=== PATIENT | female | born 1970 | race Two or more races ===

== ENCOUNTER 2020-07-22 10:44 | Inpatient (IN) | payer MEDICAID ==
[~2020-07-22] VITALS: Ht 160 cm; Wt 74.1 kg
[2020-07-22 12:02] LABS: BASOPHILS # (AUTO) 0.1 X10'3 (0-0.2); BASOPHILS % (AUTO) 0.5 % (0-1); EOSINOPHILS % (AUTO) 0.1 % (0-6); HEMATOCRIT 28.6 % (35.0-45.0); HEMOGLOBIN 9.2 g/dl (12.0-16.0); LYMPHOCYTES % (AUTO) 7.9 % (21-51); MEAN CORPUSCULAR HEMOGLOBIN 25.4 PG (27.0-31.0); MEAN CORPUSCULAR HGB CONC 32.3 g/dL (33.0-36.5); MEAN CORPUSCULAR VOLUME 78.6 FL (78-98); MEAN PLATELET VOLUME 8.5 FL (7.4-10.4); MONOCYTES % (AUTO) 8.4 % (2-12); NEUTROPHILS # (AUTO) 10.3 X10'3 (1.8-7.7); NEUTROPHILS % (AUTO) 83.1 % (42-75); PLATELET COUNT 280 X10'3 (140-440); RED BLOOD COUNT 3.63 X10'6 (4.20-5.60); RED CELL DISTRIBUTION WIDTH 15.4 % (11.5-14.5); WHITE BLOOD COUNT 12.4 X10'3 (4.5-11.0)
[2020-07-22] MEDS ORDERED: normal saline 1000ML IV soln IVB ONE (12:20)
[2020-07-22] MEDS ORDERED: ketorolac tromethamine 15mg/ml inj. IM ONE (12:20)
[2020-07-22 12:22] LABS: ALANINE AMINOTRANSFERASE 61 U/L (12-78); ALBUMIN 3.4 G/DL (3.4-5.0); ALBUMIN/GLOBULIN RATIO 0.8 (1.1-1.5); ALKALINE PHOSPHATASE 98 IU/L (46-116); ANION GAP 10 (8-16); ASPARTATE AMINO TRANSFERASE 37 U/L (10-37); BILIRUBIN,TOTAL 1.3 MG/DL (0.1-1.0); BLOOD UREA NITROGEN 15 MG/DL (7-18); CALCIUM 8.6 MG/DL (8.5-10.1); CHLORIDE 101 MMOL/L (99-107); CREATININE 0.79 MG/DL (0.40-0.90); GLUCOSE 103 MG/DL (70-104); LIPASE 75 U/L (73-393); POTASSIUM 3.7 MMOL/L (3.5-5.1); SODIUM 137 MMOL/L (135-145); TOTAL CARBON DIOXIDE 25.7 MMOL/L (24-32); TOTAL PROTEIN 7.8 G/DL (6.4-8.2); eGFR 77 ML/MIN
[2020-07-22] MEDS ORDERED: mag hydrox/Alum hydrox/simeth 30ml oral suspension PO ONE (13:25)
[2020-07-22] MEDS ORDERED: famotidine 20mg tablet PO ONE (13:25)
[2020-07-22 14:31] LABS: CLARITY,URINE SLIGHTLY CLOUDY (Clear); COLOR,URINE YELLOW (Yellow); GLUCOSE, URINE NEGATIVE (Neg); KETONES,URINE TRACE mg/dl (Neg); LEUKOCYTE ESTERASE ,URINE NEGATIVE (Neg); NITRITES, URINE NEGATIVE (Neg); OCCULT BLOOD,URINE MODERATE (Neg); PROTEIN,URINE NEGATIVE (Neg); UROBILINOGEN,URINE 0.2 E.U/dL (0.2-1.0)
[2020-07-22 14:32] LABS: UA COLLECTION TYPE CLN CATCH MIDSTREAM
[2020-07-22 14:33] LABS: URINE HCG NEGATIVE (NEG)
[2020-07-22 14:48] LABS: SQUAMOUS EPITHELIAL CELL,UR MODERATE /LPF (FEW)
[2020-07-22 14:50] LABS: BACTERIA,URINE 4+ /HPF (Neg); COARSE GRANULAR CAST 0-3 /LPF (NEGATIVE); RBC,URINE 0-2 /HPF (0-2)
[2020-07-22] MEDS ORDERED: iohexol 300mg/ml 100ml inj. ONE (15:08)
[2020-07-22] MEDS ORDERED: CefTRIAXone/D5W-Rocephin 1gm 50 ML IV ONE (16:05)
[2020-07-22 16:20] LABS: GASTRIC OCCULT BLOOD POSITIVE (Neg)
[2020-07-22] MEDS ORDERED: OMEP-50 PO (17:14)
[2020-07-22] MEDS ORDERED: ONDA8TAB65 PO (17:14)
[2020-07-22] MEDS ORDERED: FLUO100P17 PO (17:14)
[2020-07-22] MEDS ORDERED: VITA1TAB20 PO (17:15)
[2020-07-22] MEDS ORDERED: ASCO-10 PO (17:15)
[2020-07-22] MEDS ORDERED: magnesium 4gm in 100ml NS 100 ML IV PRN (18:10)
[2020-07-22] MEDS ORDERED: acetaminophen 325mg tablet PO PRN (18:10)
[2020-07-22] MEDS ORDERED: morphine 2 MG/ML inj. syringe IV PRN ×2 (18:10)
[2020-07-22] MEDS ORDERED: magnesium 2GM in 50ml NS 50 ML IV PRN (18:10)
[2020-07-22] MEDS ORDERED: potassium Cl 20 mEq SR tablet PO PRN ×2 (18:10)
[2020-07-22] MEDS ORDERED: magnesium hydroxide 30ml (MOM) UD suspension PO PRN (18:10)
[2020-07-22] MEDS ORDERED: potassium Cl 40MEQ/1/2NS 520ml 520 ML IV PRN ×2 (18:10)
[2020-07-22] MEDS ORDERED: ondansetron/PF 4mg/2ml inj IV PRN (18:10)
[2020-07-22] MEDS: normal saline 1000ml 1,000 ML IV SCH (18:46)
[2020-07-22 19:05] LABS: HEMATOCRIT 24.8 % (35.0-45.0); HEMOGLOBIN 7.9 g/dl (12.0-16.0); MEAN CORPUSCULAR HEMOGLOBIN 25.3 PG (27.0-31.0); MEAN CORPUSCULAR VOLUME 78.9 FL (78-98); MEAN PLATELET VOLUME 8.8 FL (7.4-10.4); PLATELET COUNT 217 X10'3 (140-440); RED BLOOD COUNT 3.14 X10'6 (4.20-5.60); RED CELL DISTRIBUTION WIDTH 15.4 % (11.5-14.5); WHITE BLOOD COUNT 11.8 X10'3 (4.5-11.0)
[2020-07-22] MEDS: pantoprazole 40MG/NS 100ML BAG 100 ML IV SCH ×3 (19:13→22:58)
[2020-07-22] MEDS: K and/or MAG REPLACEMENT MC SCH (19:14)
--- NOTE | 2020-07-22 19:21 | NUR ---
Patient in room ED 16. I have received report from THERESE CARLSON and had the opportunity to ask questions and will assume patient care.
[2020-07-22 19:42] VITALS: BP 118/68
[2020-07-22] MEDS: mag hydrox/Alum hydrox/simeth 30ml oral suspension PO PRN (20:50)
[2020-07-22] MEDS ORDERED: pantoprazole 40MG/NS 100ML BAG 100 ML IV SCH (21:00)
--- NOTE | 2020-07-22 22:33 | NUR ---
PATIENT RUNNING A LOW GRADE FEVER OF 100.3 AND COOLING MEASURES PROVIDED.
[2020-07-22 23:52] VITALS: BP 108/53
[2020-07-23] VITALS (8 sets, daily range): BP systolic 89–132; BP diastolic 44–69
[2020-07-23] MEDS: normal saline 1000ml 1,000 ML IV SCH ×2 (02:30→12:17)
[2020-07-23 02:32] LABS: HEMATOCRIT 25.5 % (35.0-45.0); HEMOGLOBIN 8.1 g/dl (12.0-16.0); MEAN CORPUSCULAR HEMOGLOBIN 25.2 PG (27.0-31.0); MEAN CORPUSCULAR HGB CONC 31.7 g/dL (33.0-36.5); MEAN CORPUSCULAR VOLUME 79.4 FL (78-98); PLATELET COUNT 229 X10'3 (140-440); RED BLOOD COUNT 3.21 X10'6 (4.20-5.60); RED CELL DISTRIBUTION WIDTH 15.4 % (11.5-14.5); WHITE BLOOD COUNT 14.1 X10'3 (4.5-11.0)
--- NOTE | 2020-07-23 02:46 | NUR ---
Patient running a fever with temperature 103.0 orally and Tylenol administered.
[2020-07-23 02:51] LABS: ALANINE AMINOTRANSFERASE 45 U/L (12-78); ALBUMIN 2.7 G/DL (3.4-5.0); ALBUMIN/GLOBULIN RATIO 0.7 (1.1-1.5); ALKALINE PHOSPHATASE 74 IU/L (46-116); ANION GAP 9 (8-16); ASPARTATE AMINO TRANSFERASE 22 U/L (10-37); BLOOD UREA NITROGEN 11 MG/DL (7-18); BUN/CREATININE RATIO 10.8 (6.6-38.0); CALCIUM 7.6 MG/DL (8.5-10.1); CHLORIDE 103 MMOL/L (99-107); CREATININE 1.02 MG/DL (0.40-0.90); GLUCOSE 116 MG/DL (70-104); MAGNESIUM 1.9 MG/DL (1.5-2.4); POTASSIUM 3.8 MMOL/L (3.5-5.1); SODIUM 134 MMOL/L (135-145); TOTAL CARBON DIOXIDE 21.9 MMOL/L (24-32); TOTAL PROTEIN 6.4 G/DL (6.4-8.2); eGFR 58 ML/MIN
--- NOTE | 2020-07-23 04:02 | NUR ---
RECHECKED TEMP 100.0
[2020-07-23] MEDS: pantoprazole 40MG/NS 100ML BAG 100 ML IV SCH ×3 (04:18→16:00)
--- NOTE | 2020-07-23 06:20 | NUR ---
Problems reprioritized. Patient report given, questions answered & plan of care reviewed with AME CARLSON.
[2020-07-23] MEDS: K and/or MAG REPLACEMENT MC SCH ×2 (08:00→19:30)
[2020-07-23 10:27] LABS: HEMATOCRIT 26.4 % (35.0-45.0); HEMOGLOBIN 8.5 g/dl (12.0-16.0); MEAN CORPUSCULAR HEMOGLOBIN 25.5 PG (27.0-31.0); MEAN CORPUSCULAR HGB CONC 32.2 g/dL (33.0-36.5); MEAN PLATELET VOLUME 8.4 FL (7.4-10.4); PLATELET COUNT 236 X10'3 (140-440); RED BLOOD COUNT 3.34 X10'6 (4.20-5.60); RED CELL DISTRIBUTION WIDTH 15.5 % (11.5-14.5)
[2020-07-23] MEDS ORDERED: MIDAZolam 5mg/5ml vial ONE (13:20)
[2020-07-23] MEDS ORDERED: fentaNYL/PF 50MCG/1 ML 2ML syringe ONE (13:20)
[2020-07-23] MEDS ORDERED: LIDOcaine Viscous 15ml cup ONE (13:20)
[2020-07-23] MEDS: CefTRIAXone/D5W-Rocephin 1gm 50 ML IV SCH (16:23)
--- NOTE | 2020-07-23 18:08 | NUR ---
Problems reprioritized. Patient report given, questions answered & plan of care reviewed with ALDO Jim.
--- NOTE | 2020-07-23 19:26 | NUR ---
Patient in room [facility]. I have received report from AME CARLSON and had the opportunity to ask questions and assume patient care.
[2020-07-23] MEDS: lactobacillus rhamnosus 10,000 MMU CELLS/CAPSULE PO SCH (19:37)
[2020-07-23] MEDS: pantoprazole 40mg Tablet.DR PO SCH (19:38)
[2020-07-23] MEDS: mag hydrox/Alum hydrox/simeth 30ml oral suspension PO PRN (19:40)
[2020-07-24] VITALS: BP 126/61
[2020-07-24] MEDS: normal saline 1000ml 1,000 ML IV SCH ×2 (00:51→10:47)
--- NOTE | 2020-07-24 06:36 | NUR ---
Problems reprioritized. Patient report given, questions answered & plan of care reviewed with BREANA CARLSON/NEIL CARLSON.
--- NOTE | 2020-07-24 06:41 | NUR ---
Patient in room [facility]. I have received report from Diandra CARLSON and had the opportunity to ask questions and assume patient care.
[2020-07-24 07:00] VITALS: BP 117/47
[2020-07-24 07:07] LABS: BASOPHILS # (AUTO) 0.1 X10'3 (0-0.2); BASOPHILS % (AUTO) 0.4 % (0-1); EOSINOPHILS % (AUTO) 0.2 % (0-6); HEMATOCRIT 22.9 % (35.0-45.0); HEMOGLOBIN 7.4 g/dl (12.0-16.0); LYMPHOCYTES # (AUTO) 1.8 X10'3 (1.1-4.8); LYMPHOCYTES % (AUTO) 14.5 % (21-51); MEAN CORPUSCULAR HEMOGLOBIN 25.7 PG (27.0-31.0); MEAN CORPUSCULAR HGB CONC 32.5 g/dL (33.0-36.5); MEAN CORPUSCULAR VOLUME 78.8 FL (78-98); MEAN PLATELET VOLUME 9.1 FL (7.4-10.4); MONOCYTES # (AUTO) 1.5 X10'3 (0-0.9); MONOCYTES % (AUTO) 11.9 % (2-12); NEUTROPHILS # (AUTO) 9.3 X10'3 (1.8-7.7); PLATELET COUNT 200 X10'3 (140-440); RED CELL DISTRIBUTION WIDTH 15.8 % (11.5-14.5); WHITE BLOOD COUNT 12.8 X10'3 (4.5-11.0)
[2020-07-24 07:39] LABS: ALANINE AMINOTRANSFERASE 36 U/L (12-78); ALBUMIN 2.4 G/DL (3.4-5.0); ALBUMIN/GLOBULIN RATIO 0.7 (1.1-1.5); ALKALINE PHOSPHATASE 62 IU/L (46-116); ANION GAP 12 (8-16); ASPARTATE AMINO TRANSFERASE 24 U/L (10-37); BILIRUBIN,TOTAL 0.8 MG/DL (0.1-1.0); BLOOD UREA NITROGEN 7 MG/DL (7-18); BUN/CREATININE RATIO 9.7 (6.6-38.0); CALCIUM 7.3 MG/DL (8.5-10.1); CHLORIDE 107 MMOL/L (99-107); CREATININE 0.72 MG/DL (0.40-0.90); GLUCOSE 98 MG/DL (70-104); MAGNESIUM 2.1 MG/DL (1.5-2.4); POTASSIUM 3.6 MMOL/L (3.5-5.1); SODIUM 141 MMOL/L (135-145); TOTAL CARBON DIOXIDE 22.2 MMOL/L (24-32); eGFR 86 ML/MIN
[2020-07-24] MEDS: K and/or MAG REPLACEMENT MC SCH ×2 (08:00→20:00)
[2020-07-24] MEDS: lactobacillus rhamnosus 10,000 MMU CELLS/CAPSULE PO SCH ×2 (08:51→21:07)
[2020-07-24] MEDS: pantoprazole 40mg Tablet.DR PO SCH ×2 (08:51→21:07)
[2020-07-24 11:07] VITALS: BP 109/60
[2020-07-24] MEDS: CefTRIAXone/D5W-Rocephin 1gm 50 ML IV SCH (16:49)
[2020-07-24] MEDS ORDERED: acetaminophen 325mg tablet PO PRN (17:10)
[2020-07-24 18:00] VITALS: BP 111/49
--- NOTE | 2020-07-24 18:41 | NUR ---
Problems reprioritized. Patient report given, questions answered & plan of care reviewed with Prudence RN.
[2020-07-24] MEDS ORDERED: Melatonin 3mg tablet PO SCH (21:00)
[2020-07-24 23:55] VITALS: BP 130/63
[2020-07-25] MEDS: normal saline 1000ml 1,000 ML IV SCH (05:20)
[2020-07-25 06:07] LABS: BASOPHILS # (AUTO) 0.1 X10'3 (0-0.2); BASOPHILS % (AUTO) 0.7 % (0-1); EOSINOPHILS # (AUTO) 0.2 X10'3 (0-0.9); HEMATOCRIT 23.6 % (35.0-45.0); HEMOGLOBIN 7.7 g/dl (12.0-16.0); LYMPHOCYTES # (AUTO) 1.4 X10'3 (1.1-4.8); MEAN CORPUSCULAR HEMOGLOBIN 25.7 PG (27.0-31.0); MEAN CORPUSCULAR HGB CONC 32.6 g/dL (33.0-36.5); MEAN CORPUSCULAR VOLUME 78.9 FL (78-98); MONOCYTES # (AUTO) 0.8 X10'3 (0-0.9); MONOCYTES % (AUTO) 9.5 % (2-12); NEUTROPHILS # (AUTO) 6.1 X10'3 (1.8-7.7); NEUTROPHILS % (AUTO) 71.8 % (42-75); PLATELET COUNT 204 X10'3 (140-440); RED BLOOD COUNT 2.99 X10'6 (4.20-5.60); RED CELL DISTRIBUTION WIDTH 15.9 % (11.5-14.5); WHITE BLOOD COUNT 8.5 X10'3 (4.5-11.0)
--- NOTE | 2020-07-25 06:16 | NUR ---
Problems reprioritized. Patient report given, questions answered & plan of care reviewed with BREANA CARLSON/NEIL CARLSON.
--- NOTE | 2020-07-25 06:21 | NUR ---
Patient in room [facility]. I have received report from Diandra CARLSON and had the opportunity to ask questions and assume patient care.
[2020-07-25 06:32] LABS: ALANINE AMINOTRANSFERASE 49 U/L (12-78); ALBUMIN 2.4 G/DL (3.4-5.0); ALBUMIN/GLOBULIN RATIO 0.6 (1.1-1.5); ALKALINE PHOSPHATASE 66 IU/L (46-116); ANION GAP 9 (8-16); ASPARTATE AMINO TRANSFERASE 38 U/L (10-37); BILIRUBIN,TOTAL 0.6 MG/DL (0.1-1.0); BLOOD UREA NITROGEN 7 MG/DL (7-18); CALCIUM 7.8 MG/DL (8.5-10.1); CHLORIDE 108 MMOL/L (99-107); GLUCOSE 97 MG/DL (70-104); MAGNESIUM 2.1 MG/DL (1.5-2.4); SODIUM 141 MMOL/L (135-145); TOTAL CARBON DIOXIDE 24.5 MMOL/L (24-32); TOTAL PROTEIN 6.1 G/DL (6.4-8.2); eGFR 89 ML/MIN
[2020-07-25 07:49] VITALS: BP 112/59
[2020-07-25] MEDS: pantoprazole 40mg Tablet.DR PO SCH (08:27)
[2020-07-25] MEDS: lactobacillus rhamnosus 10,000 MMU CELLS/CAPSULE PO SCH (08:28)
[2020-07-25] MEDS: K and/or MAG REPLACEMENT MC SCH (08:30)
[2020-07-25 11:00] VITALS: BP 108/46
[2020-07-25] MEDS ORDERED: PANT40TA54 PO (14:38)
--- NOTE | 2020-07-26 16:06 | NUR ---
CASE MANAGEMENT DISCHARGE FOLLOW UP: Spoke with pt via telephone. Reports that she is feeling much better, a little tired; denies pain, gas. Verbalizes understanding of s/sx requiring further evaluation/emergent assistance. Verbalizes understanding of new and current medications. Verbalizes compliance with MD discharge instructions. Verbalizes understanding of the importance in making/keeping follow-up appointments, sees PCP next week. Wants to know about GI results, provided with Dr Sharma's phone number, she will call for follow up. States no further questions/concerns at this time.
== END 2020-07-25 16:05 | disposition home or self-care (01) | DRG 720 ==
LOC: ER 10:45 → ED HOLD 18:10 → SUR 3N 19:29
PROVIDERS: ADMIT Family Medicine; ATTEND Family Medicine
PROC: BW211ZZ Computerized Tomography (CT Scan) of Abdomen and Pelvis using Low Osmolar Contrast (ICD-10-PCS; 2020-07-22)
PROC: 0DB68ZX Excision of Stomach, Via Natural or Artificial Opening Endoscopic, Diagnostic (ICD-10-PCS; principal; 2020-07-23)
DX: A41.9 Sepsis, unspecified organism (principal); N10 Acute pyelonephritis; D50.0 Iron deficiency anemia secondary to blood loss (chronic); K76.0 Fatty (change of) liver, not elsewhere classified; K21.9 Gastro-esophageal reflux disease without esophagitis; N93.9 Abnormal uterine and vaginal bleeding, unspecified; B96.20 Unspecified Escherichia coli [E. coli] as the cause of diseases classified elsewhere; K29.51 Unspecified chronic gastritis with bleeding; Z82.49 Family history of ischemic heart disease and other diseases of the circulatory system; Z83.3 Family history of diabetes mellitus; Z98.891 History of uterine scar from previous surgery; Z79.899 Other long term (current) drug therapy
CPT/HCPCS: 36415; 43239; 74177; 76700; 76856; 80053; 81001; 81025; 82271; 83605; 83690; 83735; 84145; 85025; 85027; 87040; 87077; 87081; 87088; 87186; 87210; 96372; 99152; 99153; 99285; A4620; C9113; G0378; J0696; J1885; J2250; J2270; J3010; J7030; J7040; Q9967

== ENCOUNTER 2020-07-31 12:06 | Emergency (ER) | payer MEDICAID ==
[~2020-07-31] VITALS: Ht 157.5 cm; Wt 72.5 kg
[~2020-07-31 12:06] MED LIST: ASCO-10 PO; FLUO100P17 PO; ONDA8TAB65 PO; PANT40TA54 PO; VITA1TAB20 PO
[2020-07-31] MEDS ORDERED: normal saline 1000ML IV soln IVB ONE (12:50)
[2020-07-31] MEDS ORDERED: ferrous sulfate 325mg tablet PO STA (12:55)
[2020-07-31] MEDS ORDERED: medroxyprogesterone acet. 2.5mg tablet PO STA (12:55)
[2020-07-31 13:01] LABS: URINE HCG NEGATIVE (NEG)
[2020-07-31 13:01] LABS: BASOPHILS # (AUTO) 0.1 X10'3 (0-0.2); BASOPHILS % (AUTO) 0.8 % (0-1); EOSINOPHILS # (AUTO) 0.1 X10'3 (0-0.9); EOSINOPHILS % (AUTO) 1.3 % (0-6); HEMATOCRIT 26.8 % (35.0-45.0); HEMOGLOBIN 8.6 g/dl (12.0-16.0); LYMPHOCYTES # (AUTO) 1.4 X10'3 (1.1-4.8); LYMPHOCYTES % (AUTO) 18.9 % (21-51); MEAN CORPUSCULAR HGB CONC 32.3 g/dL (33.0-36.5); MEAN CORPUSCULAR VOLUME 77.3 FL (78-98); MEAN PLATELET VOLUME 8.6 FL (7.4-10.4); MONOCYTES # (AUTO) 0.4 X10'3 (0-0.9); MONOCYTES % (AUTO) 6.1 % (2-12); NEUTROPHILS # (AUTO) 5.3 X10'3 (1.8-7.7); NEUTROPHILS % (AUTO) 72.9 % (42-75); PLATELET COUNT 459 X10'3 (140-440); RED BLOOD COUNT 3.46 X10'6 (4.20-5.60); RED CELL DISTRIBUTION WIDTH 15.8 % (11.5-14.5); WHITE BLOOD COUNT 7.3 X10'3 (4.5-11.0)
[2020-07-31 13:18] LABS: ALANINE AMINOTRANSFERASE 53 U/L (12-78); ALBUMIN 3.1 G/DL (3.4-5.0); ALBUMIN/GLOBULIN RATIO 0.7 (1.1-1.5); ALKALINE PHOSPHATASE 75 IU/L (46-116); ANION GAP 8 (8-16); ASPARTATE AMINO TRANSFERASE 34 U/L (10-37); BILIRUBIN,TOTAL 0.4 MG/DL (0.1-1.0); BLOOD UREA NITROGEN 15 MG/DL (7-18); BUN/CREATININE RATIO 19.5 (6.6-38.0); CALCIUM 8.7 MG/DL (8.5-10.1); CHLORIDE 103 MMOL/L (99-107); CREATININE 0.77 MG/DL (0.40-0.90); GLUCOSE 115 MG/DL (70-104); POTASSIUM 4.1 MMOL/L (3.5-5.1); SODIUM 137 MMOL/L (135-145); TOTAL CARBON DIOXIDE 25.6 MMOL/L (24-32); TOTAL PROTEIN 7.3 G/DL (6.4-8.2); eGFR 80 ML/MIN
[2020-07-31] MEDS ORDERED: FERR325T28 PO (13:46)
[2020-07-31] MEDS ORDERED: MEDR10TA PO (13:46)
[2020-07-31 13:49] VITALS: BP 130/82
== END 2020-07-31 14:33 | disposition home or self-care (01) ==
LOC: ER 12:07
DX: N93.9 Abnormal uterine and vaginal bleeding, unspecified (principal); R11.2 Nausea with vomiting, unspecified; K21.9 Gastro-esophageal reflux disease without esophagitis; Z98.890 Other specified postprocedural states; Z79.899 Other long term (current) drug therapy
CPT/HCPCS: 36415; 80053; 81025; 85025; 93005; 96360; 99284; J7030

== ENCOUNTER 2020-10-11 05:32 | Day surgery (SDC) | payer MEDICAID ==
[2020-10-05 10:14] LABS: BASOPHILS # (AUTO) 0.1 X10'3 (0-0.2); BASOPHILS % (AUTO) 0.9 % (0-1); EOSINOPHILS # (AUTO) 0.1 X10'3 (0-0.9); EOSINOPHILS % (AUTO) 1.7 % (0-6); LYMPHOCYTES # (AUTO) 1.4 X10'3 (1.1-4.8); LYMPHOCYTES % (AUTO) 24.6 % (21-51); MEAN CORPUSCULAR HGB CONC 33.2 g/dL (33.0-36.5); MEAN CORPUSCULAR VOLUME 81.4 FL (78-98); MEAN PLATELET VOLUME 9.4 FL (7.4-10.4); MONOCYTES # (AUTO) 0.5 X10'3 (0-0.9); MONOCYTES % (AUTO) 8.5 % (2-12); NEUTROPHILS # (AUTO) 3.5 X10'3 (1.8-7.7); NEUTROPHILS % (AUTO) 64.3 % (42-75); PRE OP HEMATOCRIT 42.6 % (35.0-45.0); PRE OP HEMOGLOBIN 14.2 g/dL (12.0-16.0); PRE OP PLATELET COUNT 353 X10'3 (140-440); RED BLOOD COUNT 5.24 X10'6 (4.20-5.60); RED CELL DISTRIBUTION WIDTH 15.4 % (11.5-14.5)
[2020-10-05 10:15] LABS: CLARITY,URINE CLOUDY (Clear); COLOR,URINE YELLOW (Yellow); GLUCOSE, URINE NEGATIVE (Neg); KETONES,URINE NEGATIVE (Neg); LEUKOCYTE ESTERASE ,URINE NEGATIVE (Neg); NITRITES, URINE NEGATIVE (Neg); OCCULT BLOOD,URINE NEGATIVE (Neg); PH,URINE 5.5 (4.8-8.0); PROTEIN,URINE NEGATIVE (Neg); UROBILINOGEN,URINE 0.2 E.U/dL (0.2-1.0)
[2020-10-05 10:16] LABS: UA COLLECTION TYPE CLN CATCH MIDSTREAM
[2020-10-05 10:26] LABS: PRE OP PROTIME 10.3 SECONDS (9.0-12.0)
[2020-10-05 10:30] LABS: ALBUMIN 3.4 G/DL (3.4-5.0); ALBUMIN/GLOBULIN RATIO 0.8 (1.1-1.5); ALKALINE PHOSPHATASE 51 IU/L (46-116); BLOOD UREA NITROGEN 15 MG/DL (7-18); BUN/CREATININE RATIO 21.1 (6.6-38.0); CALCIUM 8.4 MG/DL (8.5-10.1); CHLORIDE 106 MMOL/L (99-107); CREATININE 0.71 MG/DL (0.40-0.90); PRE OP ANION GAP 9 (8-16); PRE OP AST 73 U/L (10-37); PRE OP BILIRUB, TOTAL 0.7 MG/DL (0.0-1.0); PRE OP GLUCOSE 91 MG/DL (70-104); PRE OP POTASSIUM 4.1 MMOL/L (3.4-5.1); PRE OP SODIUM 140 MMOL/L (135-145); TOTAL CARBON DIOXIDE 25.2 MMOL/L (24-32); TOTAL PROTEIN 7.6 G/DL (6.4-8.2); eGFR 87 ML/MIN
[2020-10-05 10:32] LABS: MUCUS STRANDS MANY /LPF (Neg); SQUAMOUS EPITHELIAL CELL,UR MANY /LPF (FEW)
[2020-10-05 10:33] LABS: BACTERIA,URINE 1+ /HPF (Neg); RBC,URINE 0-2 /HPF (0-2); WBC,URINE 0-4 /HPF (0-4)
[2020-10-05 10:34] LABS: HCG SERUM QL NEGATIVE; PRE OP ALT 198 U/L (30-65)
[2020-10-11] VITALS (8 sets, daily range): BP systolic 123–135; BP diastolic 61–76
[~2020-10-11] VITALS: Ht 160 cm; Wt 77.2 kg
[~2020-10-11 05:32] MED LIST changes: -ASCO-10 PO; -FLUO100P17 PO; +MEDR10TA PO; +NORE-106 PO; +ceFOXitin 2GM-NS 100mL ADDvant 100 ML IV ONE; +famotidine 20mg tablet PO ONE; +ringers solution, lacted 1,000 ML IV SCH
[2020-10-11] MEDS ORDERED: meperidine/PF 25mg/ml syringe IV PRN ×3 (07:15)
[2020-10-11] MEDS ORDERED: ringers solution, lacted 1,000 ML IV SCH (07:15)
[2020-10-11] MEDS ORDERED: proCHLORperazine 10 MG/2 ml inj IV PRN (07:15)
[2020-10-11] MEDS ORDERED: morphine 4 MG/ML inj SYRINge IV PRN (07:15)
[2020-10-11] MEDS ORDERED: morphine 2 MG/ML inj. syringe IV PRN (07:15)
[2020-10-11] MEDS ORDERED: ondansetron/PF 4mg/2ml inj IV PRN (07:15)
[2020-10-11] MEDS ORDERED: fentaNYL/PF 50MCG/1 ML 2ML syringe ONE (07:20)
[2020-10-11] MEDS ORDERED: sevoflurane 250ml liquid IH ONE (07:20)
[2020-10-11] MEDS ORDERED: midazolam 1 mg/ML 2ml injection ONE (07:21)
[2020-10-11] MEDS ORDERED: LIDOcaine 2% (20mg/ml) 5ml vial ONE (07:22)
[2020-10-11] MEDS ORDERED: propofol inj 20 ML IV ONE (07:22)
[2020-10-11] MEDS ORDERED: dexamethasone sod phosphate 4mg/ml inj. ONE (07:50)
[2020-10-11] MEDS ORDERED: ondansetron/PF 4mg/2ml inj ONE (07:50)
--- NOTE | 2020-10-11 08:00 | NUR ---
Received from OR via BED , accompanied by Anesthesiologist and report given by Anesthesiolgist. PATIENT WAKING UP, NO S/S OF PAIN, V/S WNL, CSM INTACT, SCD ON, PIV TO LUE, PERIPAD W/ SCANT DRAINAGE.
--- NOTE | 2020-10-11 09:00 | NUR ---
PATIENT A&ox4, denies PAIN, V/S WNL, CSM INTACT, SCD Off, PIV TO LUE d/c, PERIPAD W/ SCANT DRAINAGE. i have reviewed d/c instructions with patient and she has verbalized understanding. patient given script for pain and she was d/c home with all belongings and family provided transport.
== END 2020-10-11 09:00 | disposition home or self-care (01) ==
LOC: PAS 05:32
PROVIDERS: ATTEND Obstetrics & Gynecology
DX: N93.9 Abnormal uterine and vaginal bleeding, unspecified (principal); N88.2 Stricture and stenosis of cervix uteri; D64.9 Anemia, unspecified; K21.9 Gastro-esophageal reflux disease without esophagitis; E66.9 Obesity, unspecified; Z68.30 Body mass index [BMI] 30.0-30.9, adult; Z98.890 Other specified postprocedural states; Z79.899 Other long term (current) drug therapy; Z20.822 Contact with and (suspected) exposure to COVID-19; Z98.51 Tubal ligation status; Z79.01 Long term (current) use of anticoagulants
CPT/HCPCS: 36415; 58353; 80053; 81001; 82948; 84703; 85025; 85610; 85730; 86885; 86900; 86901; 93005; A4649; J0694; J1100; J2001; J2250; J2405; J2704; J3010; J7030; U0003; U0005; A4355; A4618; A6258; J7120

== ENCOUNTER 2021-08-26 10:47 | Emergency (ER) | payer MEDICAID ==
[~2021-08-26] VITALS: Ht 154.9 cm; Wt 79.5 kg
[~2021-08-26 10:47] MED LIST changes: +ONDA-104 PO; -ONDA8TAB65 PO; -ceFOXitin 2GM-NS 100mL ADDvant 100 ML IV ONE; -famotidine 20mg tablet PO ONE; -ringers solution, lacted 1,000 ML IV SCH
[2021-08-26 11:31] LABS: CLARITY,URINE SLIGHTLY CLOUDY (Clear); COLOR,URINE YELLOW (Yellow); GLUCOSE, URINE NEGATIVE (Neg); KETONES,URINE NEGATIVE (Neg); LEUKOCYTE ESTERASE ,URINE NEGATIVE (Neg); NITRITES, URINE NEGATIVE (Neg); OCCULT BLOOD,URINE SMALL (Neg); PROTEIN,URINE 30 mg/dl (Neg); UROBILINOGEN,URINE 0.2 E.U/dL (0.2-1.0)
[2021-08-26 11:31] LABS: BASOPHILS % (AUTO) 0.5 % (0-1); EOSINOPHILS # (AUTO) 0.1 X10'3 (0-0.9); EOSINOPHILS % (AUTO) 0.9 % (0-6); HEMATOCRIT 44.1 % (35.0-45.0); LYMPHOCYTES # (AUTO) 1.7 X10'3 (1.1-4.8); LYMPHOCYTES % (AUTO) 20.9 % (21-51); MEAN CORPUSCULAR HEMOGLOBIN 28.1 PG (27.0-31.0); MEAN CORPUSCULAR VOLUME 82.7 FL (78-98); MEAN PLATELET VOLUME 8.9 FL (7.4-10.4); MONOCYTES # (AUTO) 0.4 X10'3 (0-0.9); MONOCYTES % (AUTO) 5.3 % (2-12); NEUTROPHILS # (AUTO) 5.8 X10'3 (1.8-7.7); NEUTROPHILS % (AUTO) 72.4 % (42-75); PLATELET COUNT 300 X10'3 (140-440); RED BLOOD COUNT 5.33 X10'6 (4.20-5.60); RED CELL DISTRIBUTION WIDTH 13.6 % (11.5-14.5)
[2021-08-26 11:32] LABS: UA COLLECTION TYPE CLN CATCH MIDSTREAM
[2021-08-26 11:34] LABS: URINE HCG NEGATIVE (NEG)
[2021-08-26 11:41] LABS: BACTERIA,URINE 1+ /HPF (Neg); FINE GRANULAR CAST 0-3 /LPF (NEGATIVE); MUCUS STRANDS MODERATE /LPF (Neg); RBC,URINE 0-2 /HPF (0-2); SQUAMOUS EPITHELIAL CELL,UR MANY /LPF (FEW); WBC,URINE 0-4 /HPF (0-4)
[2021-08-26 11:52] LABS: GLUCOSE 138 MG/DL (70-104)
[2021-08-26 11:53] LABS: ANION GAP 12 (8-16); BLOOD UREA NITROGEN 13 MG/DL (7-18); BUN/CREATININE RATIO 18.1 (6.6-38.0); CALCIUM 8.8 MG/DL (8.5-10.1); CHLORIDE 105 MMOL/L (99-107); CREATININE 0.72 MG/DL (0.40-0.90); POTASSIUM 3.7 MMOL/L (3.5-5.1); SODIUM 142 MMOL/L (135-145); TOTAL CARBON DIOXIDE 24.9 MMOL/L (24-32); eGFR 85 ML/MIN
[2021-08-26 11:54] LABS: ALANINE AMINOTRANSFERASE 24 U/L (12-78); ALBUMIN 3.6 G/DL (3.4-5.0); ALBUMIN/GLOBULIN RATIO 0.9 (1.1-1.5); ALKALINE PHOSPHATASE 57 IU/L (46-116); ASPARTATE AMINO TRANSFERASE 11 U/L (10-37); BILIRUBIN,TOTAL 0.8 MG/DL (0.1-1.0); LIPASE 88 U/L (73-393); TOTAL PROTEIN 7.5 G/DL (6.4-8.2)
[2021-08-26 14:22] VITALS: BP 133/78
== END 2021-08-26 14:48 | disposition home or self-care (01) ==
LOC: ER 10:48
DX: R10.31 Right lower quadrant pain (principal); K21.9 Gastro-esophageal reflux disease without esophagitis; Z98.890 Other specified postprocedural states; Z79.899 Other long term (current) drug therapy
CPT/HCPCS: 36415; 74176; 80053; 81001; 81025; 83690; 85025; 99284

== ENCOUNTER 2022-05-06 20:46 | Emergency (ER) | payer MEDICAID ==
[~2022-05-06] VITALS: Ht 154.9 cm; Wt 72.7 kg
[2022-05-06 21:04] VITALS: BP 151/73
== END 2022-05-06 21:55 | disposition left against medical advice (07) ==
LOC: ER 20:47
DX: H92.01 Otalgia, right ear (principal); Z53.21 Procedure and treatment not carried out due to patient leaving prior to being seen by health care provider

== ENCOUNTER 2023-10-24 15:11 | Emergency (ER) | payer MEDICAID ==
[~2023-10-24] VITALS: Ht 154.9 cm; Wt 79.5 kg
[~2023-10-24 15:11] MED LIST changes: +VITA-290 PO; -VITA1TAB20 PO
[2023-10-24 15:18] VITALS: BP 151/87; PULSE 74; RESP 14; TEMP 97.8; O2SAT 96
== END 2023-10-24 15:36 | disposition left against medical advice (07) ==
LOC: ER 15:11
DX: R10.9 Unspecified abdominal pain (principal); Z53.21 Procedure and treatment not carried out due to patient leaving prior to being seen by health care provider

== ENCOUNTER 2024-06-10 18:40 | Emergency (ER) | payer MEDICAID ==
[~2024-06-10] VITALS: Ht 154.9 cm; Wt 82.7 kg
[2024-06-10 18:47] VITALS: TEMP 98.3
[2024-06-10 19:38] LABS: ALANINE AMINOTRANSFERASE 67 U/L (12-78); ALBUMIN 3.9 G/DL (3.4-5.0); ALBUMIN/GLOBULIN RATIO 1.1 (1.1-1.5); ANION GAP 8 (8-16); ASPARTATE AMINO TRANSFERASE 29 U/L (10-37); BILIRUBIN,TOTAL 0.9 MG/DL (0.1-1.0); BLOOD UREA NITROGEN 19 MG/DL (7-18); BUN/CREATININE RATIO 26.8 (10.0-20.0); CALCIUM 9.1 MG/DL (8.5-10.1); CHLORIDE 105 MMOL/L (99-107); CREATININE 0.71 MG/DL (0.40-0.90); GLUCOSE 100 MG/DL (70-104); POTASSIUM 3.5 MMOL/L (3.5-5.1); SODIUM 144 MMOL/L (135-145); TOTAL CARBON DIOXIDE 31.2 MMOL/L (24-32); TOTAL PROTEIN 7.6 G/DL (6.4-8.2); eCRCL 69 ML/MIN; eGFR 86 ML/MIN
[2024-06-10 19:40] LABS: BASOPHILS # (AUTO) 0.1 X10'3 (0-0.2); BASOPHILS % (AUTO) 0.8 % (0-1); EOSINOPHILS # (AUTO) 0.2 X10'3 (0-0.9); EOSINOPHILS % (AUTO) 2.1 % (0-6); HEMATOCRIT 45.2 % (35.0-45.0); HEMOGLOBIN 15.5 g/dl (12.0-16.0); LYMPHOCYTES # (AUTO) 2.8 X10'3 (1.1-4.8); LYMPHOCYTES % (AUTO) 29.8 % (21-51); MEAN CORPUSCULAR HEMOGLOBIN 28.3 PG (27.0-31.0); MEAN CORPUSCULAR HGB CONC 34.4 g/dL (33.0-36.5); MEAN CORPUSCULAR VOLUME 82.5 FL (78-98); MEAN PLATELET VOLUME 8.4 FL (7.4-10.4); MONOCYTES # (AUTO) 0.8 X10'3 (0-0.9); NEUTROPHILS # (AUTO) 5.6 X10'3 (1.8-7.7); NEUTROPHILS % (AUTO) 59.3 % (42-75); PLATELET COUNT 328 X10'3 (140-440); RED BLOOD COUNT 5.48 X10'6 (4.20-5.60); RED CELL DISTRIBUTION WIDTH 13.6 % (11.5-14.5); WHITE BLOOD COUNT 9.4 X10'3 (4.5-11.0)
[2024-06-10 19:46] LABS: LIPASE 50 U/L (16-77); PRO BRAIN NATRIURETIC PEPTIDE 87 PG/ML (0-125)
[2024-06-10 19:48] LABS: ALKALINE PHOSPHATASE 86 IU/L (46-116)
[2024-06-10 20:20] LABS: URINE HCG NEGATIVE (NEG)
[2024-06-10 20:23] LABS: BILIRUBIN,URINE NEGATIVE (Neg); CLARITY,URINE SLIGHTLY CLOUDY (Clear); COLOR,URINE YELLOW (Yellow); GLUCOSE, URINE NEGATIVE (Neg); KETONES,URINE NEGATIVE (Neg); LEUKOCYTE ESTERASE ,URINE NEGATIVE (Neg); NITRITES, URINE NEGATIVE (Neg); OCCULT BLOOD,URINE NEGATIVE (Neg); PROTEIN,URINE NEGATIVE (Neg)
[2024-06-10 20:30] LABS: BACTERIA,URINE 4+ /HPF (Neg); RBC,URINE NONE SEEN /HPF (0-2); SQUAMOUS EPITHELIAL CELL,UR MODERATE /LPF (FEW); UA COLLECTION TYPE CLN CATCH MIDSTREAM
[2024-06-10] MEDS: acetaminophen 325mg tablet PO ONE (22:45)
[2024-06-10] MEDS: ibuprofen tablet 400 MG TABLET PO ONE (22:45)
[2024-06-10] MEDS ORDERED: HYDR-3965 PO (23:50)
[2024-06-10] MEDS ORDERED: ONDA-245 PO (23:50)
[2024-06-10 23:55] VITALS: BP 164/65; PULSE 63; RESP 14; O2SAT 98
== END 2024-06-10 23:58 | disposition home or self-care (01) ==
LOC: ER 18:40
DX: K80.20 Calculus of gallbladder without cholecystitis without obstruction (principal); K21.9 Gastro-esophageal reflux disease without esophagitis; Z98.890 Other specified postprocedural states
CPT/HCPCS: 36415; 71045; 76700; 80053; 81001; 81025; 83690; 83880; 84484; 85025; 87077; 87088; 87186; 93005; 99285